=== PATIENT | male | born 1965 | race Caucasian/White ===

== ENCOUNTER 2018-12-07 14:57 | Inpatient (IN) ==
--- NOTE | 2018-12-07 15:59 | Diag Imaging Result Doc PS360 ---
EXAM: FLAT/UPRIGHT ABD/1 VIEW CHEST 12/07/2018 HISTORY: constipation TECHNIQUE: Flat and upright abdomen with PA chest COMMENT: There are distended small bowel loops in the mid and left abdomen. There is some gas in the colon without evidence of dilatation. The stomach is not distended. There is no evidence of organomegaly or mass. There are no previous studies available for comparison. There is no evidence of acute disease in the chest. No previous studies are available for comparison. IMPRESSION: Ileus versus partial small bowel obstruction. Electronically signed by Gary Serna 12/07/2018 3:57 PM
[2018-12-07 16:27] LABS: BASO# 0.01 X1000 (0.0-0.2); BASO% 0.1 % (0.0-0.8); EOS# 0.02 X1000 (0.0-0.7); EOS% 0.2 % (0.0-10.0); HEMATOCRIT 50.1 % (42.0-52.0); HEMOGLOBIN 16.7 g/dL (14.0-18.0); IMM GRAN# 0.01 X1000 (0.0-0.04); IMM GRAN% 0.1 % (0.0-0.5); LYMPH# 0.57 X1000 (1.2-3.4); LYMPH% 6.5 % (20.5-51.1); MCH 28.4 PG (27-31); MCHC 33.3 g/dL (33-37); MCV 85.2 FL (81-99); MONO# 0.62 X1000 (0.11-0.59); MPV 9.7 FL (7.4-10.4); NEUT# 7.57 X1000 (1.4-6.5); NEUT% 86.1 % (42.2-75.2); PLT 320 X1000 (130-400); RBC 5.88 XMIL (4.7-6.1); RDW 13.7 % (11.5-14.5)
[2018-12-07 16:30] LABS: BILIRUBIN URINE NEGATIVE (NEGATIVE); BLOOD URINE TRACE (NEGATIVE); CLARITY SL. CLOUDY (CLEAR); COLOR YELLOW; GLUCOSE URINE NEGATIVE (NEGATIVE); KETONE URINE 3+(Large) mg/dL (NEGATIVE); LEUKOCYTES URINE 1+ (NEGATIVE); NITRITE URINE NEGATIVE (NEGATIVE); PH URINE 6.5; PROTEIN URINE 1+(30 mg/dL) mg/dL (NEGATIVE); UROBILINOGEN URINE 1 mg/dL
[2018-12-07 16:32] LABS: AGAP 13; ALBUMIN 4.7 g/dL (3.5-5.0); ALKALINE PHOSPHATASE 90 U/L (32-122); BUN 11 mg/dL (8-22); CALCIUM 10.2 mg/dL (8.8-10.2); CHLORIDE 98 mmol/L (98-107); COSMO 282; ESTIMATED GFR > 60; GLUCOSE 118 mg/dL (70-104); GOT 23 U/L (10-34); GPT 20 U/L (10-44); LIPASE 14 U/L (13-60); POTASSIUM 4.3 mmol/L (3.5-5.1); SODIUM 141 mmol/L (136-145); TCO2 30 mmol/L (25-35); TOTAL PROTEIN 8.2 g/dL (6.3-8.3)
[2018-12-07 16:39] LABS: URINE BACTERIA 1+ /HFP; URINE CAST NONE SEEN /LPF; URINE CRYSTAL NONE SEEN /HPF; URINE EPITHELIAL CELLS <10 /HPF (<10); URINE RBC <10 /HPF (<10); URINE SOURCE CLEAN CATCH; URINE WBC <10 /HPF (<10); URINE YEAST NONE SEEN /HPF
[2018-12-07 16:53] LABS: OCCULT BLOOD 1 NEGATIVE (NEGATIVE)
--- NOTE | 2018-12-07 16:59 | PROVIDER DOCUMENTATION ---
This chart was entered by Naye Philip Scribe, acting as scribe for Mejia Skaggs MD. HPI-Abdominal Pain/GI Problem - General Chief Complaint: Abdominal Pain Stated Complaint: "BOWEL BLOCKAGE" Time Seen by Provider: 12/07/18 15:20 Source: patient Allergies/Adverse Reactions: Patient Allergies Allergy/AdvReac Type Severity Reaction Status Date / Time No Known Allergies Allergy Verified 12/07/18 16:04 Home Medications: Home Medication List Medication Instructions Recorded Confirmed Last Taken Type Esomeprazole Magnesium 40 mg PO DAILY 12/07/18 12/07/18 12/05/18 History Fenofibrate Nanocrystallized 145 mg PO DAILY 12/07/18 12/07/18 12/05/18 History [Fenofibrate] Losartan Potassium 100 mg PO DAILY 12/07/18 12/07/18 12/05/18 History Nebivolol [Bystolic] 5 mg PO DAILY 12/07/18 12/07/18 12/05/18 History Testosterone Cypionate 0.5 ml IM DIRECTED 12/07/18 12/07/18 11/28/18 History - History of Present Illness-ABD Nature of Presenting Problems: 53 y/o male presents to ED with L sided abdominal pain and constipation onset 3 days ago. Pt is alert and oriented. Abdominal Pain Onset Location: reports: LUQ, LLQ Pain Radiation: reports: no radiation Quality of Pain: reports: sharp Severity in ED: reports: severe Onset/Duration: reports: 3 days ago Timing: reports: still present Activities at Onset: reports: none Exposure to sick contacts?: No Modifying Factors: worse with: palpation Associated Symptoms: reports: constipation Last BM: 3 days ago Dark Stools Present?: reports: none noticed Rectal Bleeding: reports: none Rectal Pain: reports: none Similar Symptoms Previously?: No Recently seen or treated by another doctor?: No Review of Systems - Adult - REVIEW OF SYSTEMS - ADULT Constitutional: denies: chills, fever Eyes: reports: no symptoms reported Ears, Nose, Mouth & Throat: reports: no symptoms reported Cardiovascular: reports: no symptoms reported Respiratory: reports: no symptoms reported Gastrointestinal: reports: abdominal pain, constipation. denies: diarrhea, nausea, vomiting Genitourinary: reports: no symptoms reported Musculoskeletal: reports: no symptoms reported Integumentary: reports: no symptoms reported Neurological: reports: no symptoms reported Psychiatric: reports: no symptoms reported Endocrine: reports: no symptoms reported Hematologic/Lymphatic: reports: no symptoms reported Allergic/Immunologic: reports: no symptoms reported All Other Systems: Reviewed and Negative Past History - Adult - PAST MEDICAL HISTORY-ADULT Review of Records: reports: Old Records Reviewed, Nursing Assessment Review, Medications Reviewed Major Childhood Illnesses: reports: denies history Cardiovascular: reports: HTN - PRIOR SURGERIES/PROCEDURES Surgical/Procedure History: reports: hernia repair - IMMUNIZATION STATUS Childhood Immunizations: See Nurse Assessment Flu Vaccine: See Nurse Assessment - FAMILY HISTORY Family History: reviewed, not pertinent - SOCIAL HISTORY Smoking: non-smoker Substance Use: none/never Alcohol Use Frequency: never Living Situation: family Physical Exam-General - PHYSICAL EXAM-ADULT Initial Vital Signs Reviewed: Yes - CONSTITUTIONAL General Appearance: appears well, alert, no apparent distress - EYES Eyes: PERRL/EOMI, pink conjunctivae - HEAD, EARS, NOSE, MOUTH & THROAT HENMT: normocephalic/atraumatic, moist mucous membranes, normal ENT inspection - NECK Neck: non-tender, full range of motion - RESPIRATORY Respiratory: chest non-tender, lungs clear, normal breath sounds - CARDIOVASCULAR Cardiovascular: normal peripheral pulses, regular rate, rhythm - GASTROINTESTINAL (ABDOMEN) Abdominal Exam: normal bowel sounds, soft, tenderness (LLQ). negative: hernia - MUSCULOSKELETAL Back Exam: normal inspection, no CVA tenderness, no vertebral tenderness Extremity: normal range of motion, non-tender, normal gait - SKIN Integumentary: normal color, warm/dry - NEUROLOGIC Neurologic: grossly normal - PSYCHIATRIC Psych/Mental Status: normal mood/affect, normal thought content, normal thought process, oriented x 3 Progress - PLAN OF CARE/RESULTS Progress/Plan/Lab Results: Vital Signs - 8 hr 12/07/18 14:59 Temperature 97.8 F Pulse Rate 100 H Respiratory Rate 20 Blood Pressure 140/90 O2 Sat by Pulse Oximetry 96 Orders Category Date Time Status Saline Loc DIRECTED Care 12/07/18 15:04 Active NPO Diet 12/07/18 15:[address] ABD/PELVIS W/IV CONT ONLY [CT] Stat Exams 12/07/18 16:09 Ordered FLAT/UPRIGHT ABD/1 VIEW CHEST [RAD] Stat Exams 12/07/18 15:12 Completed AMYLASE [CHEM] Stat Lab 12/07/18 15:58 Received CBC WITH ELECTRONIC DIFF [HEME] Stat Lab 12/07/18 15:58 Results COMPREHENSIVE METABOLIC PANEL [CHEM] Stat Lab 12/07/18 15:58 Received LIPASE [CHEM] Stat Lab 12/07/18 15:[address] W/POSS RFLX CULT [URINALYSIS] Stat Lab 12/07/18 15:54 Received Laboratory Tests 12/07/18 12/07/18 12/07/18 15:54 15:58 15:58 WBC 8.80 RBC 5.88 Hgb 16.7 Hct 50.1 MCV 85.2 MCH 28.4 MCHC 33.3 RDW Std Deviation 13.7 Plt Count 320 MPV 9.7 Immature Gran % (Auto) 0.1 Neut % (Auto) 86.1 H Lymph % (Auto) 6.5 L [place] % (Auto) 7.0 Eos % (Auto) 0.2 Baso % (Auto) 0.1 Immature Gran # (Auto) 0.01 Neut # (Auto) 7.57 H Lymph # (Auto) 0.57 L [place] # (Auto) 0.62 H Eos # (Auto) 0.02 Baso # (Auto) 0.01 Sodium Potassium Chloride Carbon Dioxide Anion Gap BUN Creatinine Estimated GFR/1.73 m2 BUN/Creatinine Ratio Glucose Calculated Osmolality Calcium Total Bilirubin AST ALT Alkaline Phosphatase Total Protein Albumin Globulin Albumin/Globulin Ratio Amylase 40 Lipase Urine Source CLEAN CATCH Urine Color YELLOW Urine Clarity SL. CLOUDY A Urine pH 6.5 Ur Specific [place] 1.020 Urine Protein 1+(30 mg/dL) A Urine Ketones 3+(Large) A Urine Blood TRACE Urine Nitrite NEGATIVE Urine Bilirubin NEGATIVE Urine Urobilinogen 1 Urine Microscopic RBC <10 Urine WBC 1+ A Urine Microscopic WBC <10 Ur Epithelial Cells <10 Urine Crystals NONE SEEN Urine Bacteria 1+ Urine Casts NONE SEEN Urine Yeast NONE SEEN Urine Glucose NEGATIVE 12/07/18 15:58 WBC RBC Hgb Hct MCV MCH MCHC RDW Std Deviation Plt Count MPV Immature Gran % (Auto) Neut % (Auto) Lymph % (Auto) [place] % (Auto) Eos % (Auto) Baso % (Auto) Immature Gran # (Auto) Neut # (Auto) Lymph # (Auto) [place] # (Auto) Eos # (Auto) Baso # (Auto) Sodium 141 Potassium 4.3 Chloride 98 Carbon Dioxide 30 Anion Gap 13 BUN 11 Creatinine 1.0 Estimated GFR/1.73 m2 > 60 BUN/Creatinine Ratio 11 Glucose 118 H Calculated Osmolality 282 Calcium 10.2 Total Bilirubin 0.70 AST 23 ALT 20 Alkaline Phosphatase 90 Total Protein 8.2 Albumin 4.7 Globulin 4.0 Albumin/Globulin Ratio 1.0 Amylase Lipase 14 Urine Source Urine Color Urine Clarity Urine pH Ur Specific [place] Urine Protein Urine Ketones Urine Blood Urine Nitrite Urine Bilirubin Urine Urobilinogen Urine Microscopic RBC Urine WBC Urine Microscopic WBC Ur Epithelial Cells Urine Crystals Urine Bacteria Urine Casts Urine Yeast Urine Glucose Result Diagrams: 12/08/18 05:58 12/08/18 05:58 - XRAY 1 XRAY Study: Abdomen Impression: See EMR Report ([facility] - [address] [address] [facility] - [address] [place] [address] Department of Imaging Patient: BERNIE WEBBER Date: 12/07/18MR#: [id number] : 1965ADM Status: [facility]#: [id number] Age/Sex: 53/MRoom/Bed: Loc: .ED Ordering Physician: Mejia Skaggs MD Family Physician: Mejia Skaggs MD Reason for Procedure: constipation ___ Signed EXAM: FLAT/UPRIGHT ABD/1 VIEW CHEST 12/07/2018 HISTORY: constipation TECHNIQUE: Flat and upright abdomen with PA chest COMMENT: There are distended small bowel loops in the mid and left abdomen. There is some gas in the colon without evidence of dilatation. The stomach is not distended. There is no evidence of organomegaly or mass. There are no previous studies available for comparison. There is no evidence of acute disease in the chest. No previous studies are available for comparison. IMPRESSION: Ileus versus partial small bowel obstruction. Electronically signed by Gary Serna 12/07/2018 3:57 PM 12/07/18 1557 Interpreting Physician: Gary Serna MD Dictated Date/Time: 12/07/18 1556 cc: Mejia Skaggs MD; Mejia Skaggs MD) - CT/MRI 1 CT Study: Abdomen, Pelvis Impression: See EMR Report ([facility] - [address], [address], [place] [address] [facility] - [address] [place] [address] Department of Imaging Patient: BERNIE WEBBER Date: 12/07/18MR#: [id number] : 1965ADM Status: REG ERAcct#: [id number] Age/Sex: 53/MRoom/Bed: Loc: P.ED Ordering Physician: Mejia Skaggs MD Family Physician: Mejia Skaggs MD Reason for Procedure: r/o bowel obstruction Signed EXAM: CT ABD/PELVIS W/IV CONT ONLY 12/07/2018 HISTORY: r/o bowel obstruction TECHNIQUE: This exam was performed using automated exposure control, adjustment of mA or kV according to patient size, and/or use of iterative reconstruction technique. COMMENT: There are no previous studies available for comparison. The visualized portion of the chest is unremarkable. There are granulomata present in the spleen. The liver is hypodense suggesting fatty change. There are densely calcified gallstones in the gallbladder some of which measure is much as a centimeter in size. The kidneys are without evidence of hydronephrosis or mass. The adrenal glands are not enlarged. There is some gas and fluid in the proximal small bowel. There is gas and stool in the left colon and some fluid in the right colon without evidence of dilatation. There is no clear transition zone. The distal small bowel is decreased in diameter however. Hepatic steatosis. Pelvis: There is a small amount of free fluid in the rectovesical pouch. The urinary bladder is not distended. There is a fat-containing right inguinal hernia. There are spondylotic changes in the lumbar spine. There is no evidence of acute bony disease. IMPRESSION: Ileus versus partial small bowel obstruction. Cholelithiasis. Hepatic steatosis. Electronically signed by Gary Serna 12/07/2018 5:45 PM 12/07/181744 Interpreting Physician: Gary Serna MD Dictated Date/Time: 12/07/181740 cc: Mjeia Skaggs MD; Mejia Skaggs MD) - CONSULTS/PCP/HOSPITALIST Notification #1 *Consult/PCP/Hospitalist*: Dr. Smith Time Discussed: 15:08 Reason/Comments: Ileus v. SBO Consult Disposition: Will see in ED Departure - Departure Date of Disposition Decision: 12/07/18 Time of Disposition Decision: 18:17 Certified Medical Emergency: Emergent Condition: Stable - Critical Care Note This patient required my direct & personal management of CC.: No Attestation - Physician/ GREG Attestation Patient care was provided by Advanced Practice Provider:: No The physician spent face to face time with patient:: Yes Advanced Practice Provider documentation review:: Supervising physician onsite and consulted in the evaluation and care of this patient. The physician did have a face to face encounter with the patient. This chart was documented by the indicated scribe, (Naye Philip Scribe) and accurately reflects the services I performed and decisions made by me, Mejia Skaggs MD, as attested by the provider's signature.
--- NOTE | 2018-12-07 17:48 | Diag Imaging Result Doc PS360 ---
EXAM: CT ABD/PELVIS W/IV CONT ONLY 12/07/2018 HISTORY: r/o bowel obstruction TECHNIQUE: This exam was performed using automated exposure control, adjustment of mA or kV according to patient size, and/or use of iterative reconstruction technique. COMMENT: There are no previous studies available for comparison. The visualized portion of the chest is unremarkable. There are granulomata present in the spleen. The liver is hypodense suggesting fatty change. There are densely calcified gallstones in the gallbladder some of which measure is much as a centimeter in size. The kidneys are without evidence of hydronephrosis or mass. The adrenal glands are not enlarged. There is some gas and fluid in the proximal small bowel. There is gas and stool in the left colon and some fluid in the right colon without evidence of dilatation. There is no clear transition zone. The distal small bowel is decreased in diameter however. Hepatic steatosis. Pelvis: There is a small amount of free fluid in the rectovesical pouch. The urinary bladder is not distended. There is a fat-containing right inguinal hernia. There are spondylotic changes in the lumbar spine. There is no evidence of acute bony disease. IMPRESSION: Ileus versus partial small bowel obstruction. Cholelithiasis. Hepatic steatosis. Electronically signed by Gary Serna 12/07/2018 5:45 PM
[2018-12-07] MEDS ORDERED: PHENERGAN IV ONE (18:58)
[2018-12-07] MEDS ORDERED: SODIUM CHLORIDE 0.9% INJ ONE (18:58)
[2018-12-07] MEDS ORDERED: DEMEROL IV ONE (18:59)
--- NOTE | 2018-12-07 19:15 | GENERAL SURGERY CONSULTATION ---
DATE: 12/07/2018 REQUESTING PHYSICIAN: Dr. Skaggs. REASON FOR CONSULTATION: Abdominal pain and bowel obstruction. HISTORY OF PRESENT ILLNESS: This is a 53-year-old male with a 2-day history of bloating and early satiety followed by crampy, waxing and waning, severe [id number] abdominal pain with some nausea and vomiting. No exacerbating factors. No particular relieving factors, although currently he is not in any pain. PAST MEDICAL HISTORY: Hypertension, hypercholesterolemia, gastroesophageal reflux disease. PAST SURGICAL HISTORY: Laparoscopic hiatal hernia repair. ALLERGIES: No known drug allergies. SOCIAL HISTORY: Negative tobacco alcohol or illicit drug use. FAMILY HISTORY: Reviewed and noncontributory. REVIEW OF SYSTEMS: Ten systems reviewed and negative except as noted above. HOME MEDICATIONS: Esomeprazole, fenofibrate, losartan, Bystolic, and testosterone. PHYSICAL EXAMINATION: Vital Signs: Temperature 98.8 degrees, pulse 90 to 100, respiratory rate 19 to 22, blood pressure 133/84, O2 saturation 98%. General: Well-developed male in no distress who looks his stated age. HEENT: Normocephalic, atraumatic. Extraocular muscles intact. Pupils equal, round, and reactive to light. Sclerae anicteric. Moist mucous membranes. Hearing grossly normal. Neck: Supple. No thyromegaly. CV: Regular rate and rhythm. Respiratory: Clear bilateral breath sounds. No work of breathing. Gastrointestinal: Soft, nondistended. No organomegaly, mass, or hernias. He is tender more so on the left side than the right. He does have some guarding but no rebound. LABORATORY: CBC and metabolic profile reviewed and unremarkable. IMAGING: An abdominal x-ray shows distended small bowel loops in the mid to left abdomen with some gas in the colon. Abdominal pelvis CT scan today again shows dilated proximal small bowel, decompressed distal small bowel. No clear transition zone is seen. There is a fat-containing right inguinal hernia. There is a small amount of free fluid in the rectovesical pouch. There are calcified gallstones. ASSESSMENT AND PLAN: A 53-year-old male with abdominal pain, nausea, vomiting, and imaging consistent with at least a partial small bowel obstruction. He will be admitted for further evaluation. We will keep him on fluids and n.p.o. for now. We will check a small-bowel follow- through tomorrow and reexamine his abdomen. If fails to improve or worsens, then he will need operative exploration. I discussed this with him, and he understands and agrees to proceed. cc: Eyad Smith MD
[2018-12-07] MEDS: NS 1,000 ML IV SCH (19:18)
[2018-12-07] MEDS ORDERED: SODIUM CHLORIDE 0.9% INJ PRN (19:49)
[2018-12-07] MEDS ORDERED: PHENERGAN IV PRN (19:49)
[2018-12-07] MEDS ORDERED: DEMEROL IV PRN (19:49)
[2018-12-08] MEDS: NS 1,000 ML IV SCH (04:32)
[2018-12-08 06:36] LABS: BASO# 0.01 X1000 (0.0-0.2); BASO% 0.2 % (0.0-0.8); EOS# 0.04 X1000 (0.0-0.7); EOS% 0.8 % (0.0-10.0); HEMATOCRIT 42.8 % (42.0-52.0); HEMOGLOBIN 14.1 g/dL (14.0-18.0); IMM GRAN# 0.01 X1000 (0.0-0.04); IMM GRAN% 0.2 % (0.0-0.5); LYMPH# 1.12 X1000 (1.2-3.4); LYMPH% 23.4 % (20.5-51.1); MCH 28.4 PG (27-31); MCHC 32.9 g/dL (33-37); MCV 86.3 FL (81-99); MONO# 0.86 X1000 (0.11-0.59); MPV 9.8 FL (7.4-10.4); NEUT# 2.75 X1000 (1.4-6.5); NEUT% 57.4 % (42.2-75.2); PLT 249 X1000 (130-400); RBC 4.96 XMIL (4.7-6.1); RDW 13.8 % (11.5-14.5); WBC 4.79 X1000 (4.8-10.8)
[2018-12-08 06:47] LABS: AGAP 10; BUN 15 mg/dL (8-22); CALCIUM 8.5 mg/dL (8.8-10.2); CHLORIDE 103 mmol/L (98-107); COSMO 278; CREATININE 0.9 mg/dL (0.7-1.2); ESTIMATED GFR > 60; GLUCOSE 88 mg/dL (70-104); POTASSIUM 3.8 mmol/L (3.5-5.1); SODIUM 139 mmol/L (136-145); TCO2 26 mmol/L (25-35)
[2018-12-08 07:54] VITALS: BP 111/73
--- NOTE | 2018-12-08 13:04 | Diag Imaging Result Doc PS360 ---
EXAM: SMALL BOWEL SERIES ONLY HISTORY: SBO TECHNIQUE: 12 films submitted COMPARISON: None. FINDINGS: Oral contrast was taken with filling of the small bowel. The mid small bowel loops aren't dilated. Normal mucosal pattern. The distal small bowel loops are not dilated. Emptying into the colon one hour. No stricture or transition point identified. IMPRESSION: Partial small bowel obstruction Electronically signed by Shai Salazar 12/08/2018 1:02 PM
--- NOTE | 2018-12-08 21:04 | GENERAL SURGERY PROGRESS NOTE ---
DATE: 12/08/2018 SUBJECTIVE: The patient feels much better today. He denies nausea, vomiting. He has had a small bowel movement and passed gas. He is tolerating liquids without vomiting. His pain on the left side of his abdomen has significantly improved from an 8 at its worst prior to admission down to a 2 today. OBJECTIVE: He is afebrile. Vital signs are stable.General: He is awake, alert, oriented x3. No acute distress. GI: Soft, nondistended, minimal tenderness in the left abdomen. No mass. No rebound or guarding. LABORATORY: White blood cell count 4.8, hemoglobin 14. Electrolytes reviewed and unremarkable. IMAGING: His small bowel followthrough showed mild dilation of the proximal small bowel. The mid to distal small bowel were not dilated. There was emptying into the colon in 1 hour. There was no stricture or transition point identified and a normal mucosal pattern was noted. ASSESSMENT/PLAN: A 53-year-old male with abdominal pain, nausea, vomiting, now significantly improved. He had a partial small bowel obstruction of unclear etiology but I do not think he has a significant mechanical obstruction at this time. We will go ahead and discharge him home. He will follow up with me in 1 to 2 weeks. We are considering elective laparoscopic cholecystectomy as well as diagnostic laparoscopy in the near future. cc: MD Mejia Iraheta MD
== END 2018-12-08 17:57 | disposition home or self-care (01) | DRG 390 ==
LOC: P.ED 14:57 → P.MEDSURG 14:58
PROVIDERS: ADMIT Internal Medicine; ATTEND Internal Medicine